=== PATIENT | female | born 1960 | race Caucasian/White ===

== ENCOUNTER 2017-12-11 04:10 | Observation (INO) | payer OTHER ==
[2017-12-11] MEDS ORDERED: NS 0.9% 1000 ML* 1,000 ML IV ONE (04:25)
[2017-12-11] MEDS ORDERED: Morphine INJ* 4 MG/ML 1 ML CARPUJECT IV ONE (04:26)
[2017-12-11] MEDS ORDERED: Ondansetron INJ* 2 MG/ML VIAL IV ONE (04:27)
[2017-12-11] MEDS ORDERED: LORazepam INJ* 2 MG/ML 1 ML VIAL IV PUSH ONE (04:27)
[2017-12-11 04:37] LABS: ABS Basophils 0 10^3/ul (0-0.2); ABS Eosinophils 0.1 10^3/ul (0-0.6); ABS Lymphocytes 1.9 10^3/ul (1.0-4.8); ABS Monocytes 0.6 10^3/ul (0-0.8); ABS Nucleated RBC 0 10^3/ul; Eosinophil % 0.7 % (0-6); Hematocrit 38 % (35-47); Hemoglobin 13.1 g/dl (12.0-16.0); Lymphocyte % 15.1 % (25-47); Mean Corpuscular HGB Conc 35 g/dl (31-36); Mean Corpuscular Hemoglobin 32 pg (27-31); Mean Corpuscular Volume 92 fL (80-97); Mean Platelet Volume 8 um3 (7.4-10.4); Nucleated Red Blood Cells % 0.1; Platelet Count 290 10^3/ul (150-450); Red Blood Count 4.14 10^6/ul (4.0-5.4); Red Cell Distribution Width 14 % (10.5-15); White Blood Count 12.7 10^3/ul (3.5-10.8)
[2017-12-11] MEDS ORDERED: Morphine INJ* 4 MG/ML 1 ML SYRINGE (NEW SYRINGE VERSION) ONE (04:39)
[2017-12-11 04:48] LABS: EGFR Non-African American 75.6 (>60)
[2017-12-11] MEDS ORDERED: HYDROmorphone INJ* 2 MG/ML CARPUJECT SYRINGE IV SLOW PU ONE ×3 (05:23→09:35)
[2017-12-11] MEDS ORDERED: Diazepam SYRINGE* 5 MG/ML 2 ML SYRINGE (10 MG total) IV ONE (05:48)
[2017-12-11] MEDS ORDERED: Diazepam INJ (NF) 5 MG/ML 10 ML VIAL (50 MG TOTAL) IV ONE (06:00)
[2017-12-11] MEDS ORDERED: Iohexol 300* (CONTRAST) 10 ML SDV IV ONE (06:46)
--- NOTE | 2017-12-11 06:53 | ED ---
Erik Cerrato Tecjoon, [email or web address] for Micah Gomez MD on 12/11/17 at 0427 . Abdominal Pain/Female - HPI Summary HPI Summary: This patient is a 57 year old female BIBA to [facility] accompanied by with a chief complaint of abd pain since approx. 0100. Patient states the pain was very sudden onset. The pain is rated 10/10 in severity. Symptoms aggravated by nothing. Symptoms alleviated by nothing. Patient additionally reports nausea, vomiting. Patient denies diarrhea - History of Current Complaint Stated Complaint: ABD PAIN Time Seen by Provider: 12/11/17 04:15 Hx Obtained From: Patient Onset/Duration: Sudden Onset, Lasting Hours, Still Present Timing: Constant Severity Currently: Severe Location: Diffuse Aggravating Factor(s): Nothing Alleviating Factor(s): Nothing Associated Signs and Symptoms: Positive: Nausea, Vomiting. Negative: Diarrhea Allergies/Adverse Reactions: Allergies Allergy/AdvReac Type Severity Reaction Status Date / Time Penicillins Allergy See Comment Verified 12/11/17 04:35 PMH/Surg Hx/FS Hx/Imm Hx Previously Healthy: No GI History: Reports: Hx Irritable Bowel Musculoskeletal History: Denies: Hx Rheumatoid Arthritis, Hx Osteoporosis Opthamlomology History: Denies: Hx Legally Blind EENT History: Denies: Hx Deafness Infectious Disease History: Denies: Traveled Outside the [place] in Last 30 Days - Family History Known Family History: Positive: Hypertension - Social History Lives: With Family Alcohol Use: None Hx Substance Use: No Substance Use Type: Reports: None Hx Tobacco Use: No Smoking Status (MU): Never Smoked Tobacco Review of Systems Negative: Fever Positive: Abdominal Pain, Vomiting, Nausea. Negative: Diarrhea All Other Systems Reviewed And Are Negative: Yes Physical Exam - Summary Physical Exam Summary: VITAL SIGNS: Reviewed. GENERAL: Patient is a well-developed and nourished female who is lying comfortable in the stretcher. Patient is not in any acute respiratory distress. HEAD AND FACE: No signs of trauma. No ecchymosis, hematomas or skull depressions. No sinus tenderness. EYES: PERRLA, EOMI x 2, No injected conjunctiva, no nystagmus. EARS: Hearing grossly intact. Ear canals and tympanic membranes are within normal limits. MOUTH: Oropharynx within normal limits. NECK: Supple, trachea is midline, no adenopathy, no JVD, no carotid bruit, no c- spine tenderness, neck with full ROM. CHEST: Symmetric, no tenderness at palpation LUNGS: Clear to auscultation bilaterally. No wheezing or crackles. CVS: Regular rate and rhythm, S1 and S2 present, no murmurs or gallops appreciated. ABDOMEN: Diffuse abd tenderness, more so on LLQ. Hypoactive bowel sounds. EXTREMITIES: FROM in all major joints, no edema, no cyanosis or clubbing. NEURO: Alert and oriented x 3. No acute neurological deficits. Speech is normal and follows commands. SKIN: Dry and warm Triage Information Reviewed: Yes Vital Signs Reviewed: Yes Diagnostics - Laboratory Result Diagrams: 12/11/17 04:16 12/11/17 04:16 Lab Statement: Any lab studies that have been ordered have been reviewed, and results considered in the medical decision making process. Abdominal Pain Fem Course/Dx - Course Course Of Treatment: This patient is a 57 year old female BIBA to [facility] accompanied by with a chief complaint of abd pain since approx. 0100. Patient states the pain was very sudden onset. Bloodwork Obtained. Urinalysis Obtained. In the ED course the patient was given Valium, Hydromorphone, Ativan, Morphine, Zofran. The patient will be signed out to Dr. Calabrese at end of shift , awaiting CT Abd/Pel. - Diagnoses Provider Diagnoses: Abdominal pain Discharge - Discharge Plan Condition: Stable Disposition: OTHER Discharge Disposition Comment: Patient will be signed out to Dr. Calabrese at end of shift. Referrals: Joana Vanegas MD [Primary Care Provider] - The documentation as recorded by the Erik coyle Tecjoon accurately reflects the service I personally performed and the decisions made by , Micah Gomez MD.
[2017-12-11 07:41] LABS: Urine Appearance Cloudy; Urine Blood 2+ (Negative); Urine Color Amber; Urine Ketones Negative (Negative); Urine Protein 1+(30 mg/dL) (Negative); Urine Specific Gravity 1.014 (1.010-1.030); Urine Urobilinogen Negative (Negative)
--- NOTE | 2017-12-11 07:44 | RAD ---
CLINICAL HISTORY: Abdominal pain COMPARISON: August 02, 2009 TECHNIQUE: Multiple contiguous axial CT scans were obtained of the abdomen and pelvis after the administration of intravenous contrast. Coronal and sagittal multiplanar reformations are submitted for review. Oral contrast was administered. Delayed images were obtained through the abdomen and pelvis. FINDINGS: LUNG BASES: The lung bases are clear. LIVER: The right lobe of liver is enlarged and is stable from the previous examination most consistent with a Aguila's lobe. There are no focal hepatic parenchymal masses. BILE DUCTS: There is no intrahepatic or extrahepatic biliary dilatation. GALLBLADDER: The gallbladder is normal, without pericholecystic inflammatory change. PANCREAS: The pancreas is normal, without mass or ductal dilatation. SPLEEN: Normal in size and appearance. UPPER GI TRACT: Evaluation of the gastrointestinal tract is limited by incomplete gastric distention. There is a moderate sliding hiatal hernia. SMALL BOWEL AND MESENTERY: The small bowel is normal in contour, course, and caliber. There is no obstruction or dilatation. COLON: The colon is normal in contour, course, caliber. There is no pericolonic inflammatory change. ADRENALS: Normal bilaterally. KIDNEYS: There is edema of the left kidney with perinephric stranding. There is delayed excretion on the delayed images. There is pelvocaliectasis with a 0.8 cm calculus of the left UPJ. BLADDER: The bladder is incompletely distended but is grossly normal. PELVIC ORGANS: The uterus and adnexa are grossly normal for technique. AORTA: There is calcific atherosclerotic disease of the abdominal aorta and its branches, without aneurysmal dilatation IVC: Unremarkable LYMPH NODES: There is no lymphadenopathy by size criteria. ABDOMINAL WALL: There is no evidence for abdominal wall hernia. BONES AND SOFT TISSUES: There are mild diffuse degenerative changes. OTHER: None IMPRESSION: 1. LEFT-SIDED HYDRONEPHROSIS WITH A 0.8 CM LEFT UVJ CALCULUS. THERE IS EDEMA AND DELAYED EXCRETION OF THE LEFT KIDNEY WITH PERINEPHRIC STRANDING CONSISTENT WITH FORNICEAL RUPTURE. 2. ATHEROSCLEROSIS. 3. HIATAL HERNIA.
[2017-12-11] MEDS ORDERED: Ciprofloxacin 400MG IVPREMIX(* 400 MG/200 ML BAG IVPB ONE ×2 (08:09→09:00)
[2017-12-11] MEDS ORDERED: Gentamicin ADULT (*) 160 MG in NS 0.9% 100 ML* 100 ML IVPB ONE (08:26)
[2017-12-11] MEDS ORDERED: Famotidine IV* 10 MG/ML 2 ML (20 mg) IV ONE (09:22)
[2017-12-11] MEDS ORDERED: HYDROmorphone INJ* 2 MG/ML CARPUJECT SYRINGE ONE (09:35)
[2017-12-11] MEDS ORDERED: Famotidine IV* 10 MG/ML 2 ML (20 mg) ONE (09:35)
[2017-12-11] MEDS ORDERED: Ondansetron INJ* 2 MG/ML VIAL IV PRN (09:37)
[2017-12-11] MEDS ORDERED: PROCHLORPERAZINE INJ 5 MG/ML 2 ML VIAL IV PRN ×2 (09:42→11:31)
[2017-12-11] MEDS ORDERED: PROCHLORPERAZINE INJ 5 MG/ML 2 ML VIAL ONE (09:43)
[2017-12-11] MEDS ORDERED: NS 0.9% 1000 ML* 1,000 ML IV SCH (09:45)
[2017-12-11] MEDS ORDERED: Zolpidem TAB* 10 MG PO PRN (09:53)
[2017-12-11] MEDS ORDERED: Iohexol 180 (CONTRAST) 10 ML SDV IV ONE (10:11)
[2017-12-11] MEDS ORDERED: Midazolam* 1 MG/ML 10 ML VIAL (10 MG) ONE (10:45)
[2017-12-11] MEDS ORDERED: KETAMINE HCL* 50 MG/ML 10 ML VIAL ONE (10:45)
[2017-12-11] MEDS ORDERED: fentaNYL* 50 MCG/ML 2 ML VIAL (100 MCG VIAL) ONE (10:45)
[2017-12-11] MEDS ORDERED: Phenylephrine INJ* 10 MG/ML 1 ML VIAL (10 MG) ONE (11:16)
[2017-12-11] MEDS ORDERED: Ondansetron INJ* 2 MG/ML VIAL ONE (11:16)
[2017-12-11] MEDS ORDERED: Lidocaine 2% PF * 5 ML VIAL ONE (11:16)
[2017-12-11] MEDS ORDERED: Propofol* 10 MG/ML 20 ML BTL IV PUSH ONE (11:16)
[2017-12-11] MEDS ORDERED: Dexamethasone IV* 4 MG/ML 1 ML (4 MG) ONE (11:16)
[2017-12-11] MEDS ORDERED: EPHEDrine (Pressors)* 50 MG/ML VIAL ONE (11:17)
[2017-12-11] MEDS ORDERED: HYDROmorphone INJ* 1 MG/ML CARPUJECT SYRINGE IV PRN (11:31)
[2017-12-11] MEDS ORDERED: Naloxone* 0.4 MG/ML 1 ML VIAL IV PRN (11:31)
[2017-12-11] MEDS ORDERED: DiMENhydriNATE IV* 50 MG/ML VIAL IV PUSH PRN (11:31)
[2017-12-11] MEDS ORDERED: fentaNYL* 50 MCG/ML 2 ML VIAL (100 MCG VIAL) IV PRN (11:31)
--- NOTE | 2017-12-11 12:04 | RAD ---
INDICATION: Left stent insertion COMPARISONS: CT dated December 11, 2017 TECHNIQUE: Fluoroscopy was provided for a retrograde pyelogram and stent placement. Total fluoroscopy time is: 7 seconds FINDINGS: Spot images demonstrate contrast within the renal collecting system which is mildly dilated. A ureteral stent is noted. IMPRESSION: FLUOROSCOPY WAS PROVIDED FOR A RETROGRADE PYELOGRAM AND STENT PLACEMENT CPT II Codes: 6045F
[2017-12-11] MEDS ORDERED: Benzocaine/Menthol LOZ* 1 LOZENGE PO PRN (13:39)
[2017-12-11] MEDS ORDERED: Mouth Piece, Nicotine* 1 EACH CARTRIDGE INH PRN (17:05)
[2017-12-11] MEDS ORDERED: Nicotine Inhaler* 10 MG AMP INH PRN (17:05)
[2017-12-11] MEDS: HYDROmorphone INJ* 2 MG/ML CARPUJECT SYRINGE IV SLOW PU PRN ×2 (19:50→23:56)
--- NOTE | 2017-12-11 20:23 | HP ---
CC: Dr. Joana Vanegas * HISTORY AND PHYSICAL: DATE OF ADMISSION: 12/11/17 PRIMARY CARE PROVIDER: Dr. Joana Vanegas. CHIEF COMPLAINT: Left flank pain. HISTORY OF PRESENT ILLNESS: Ms. Andrew is a 57-year-old female, who states that she has had a very busy month of procedures. She around the beginning of the month underwent colonoscopy and EGD. She felt that she was dehydrated following the prep for these procedures. She then around 12/03/17 underwent a molar extraction and was prepared to have an implant placed. She was then started on Keflex 4 times daily. She continued this through yesterday. Additionally, the patient was taking Vicodin 4 to 6 times per day. The patient states that she is also on a highly restricted diet at baseline to help with her IBS-D. The patient, last evening, began to have left flank pain. By approximately 1 a.m., the pain was very severe. She ultimately contacted 911 and was brought to the emergency room. The patient underwent CT scan of the abdomen and pelvis, which revealed left-sided hydronephrosis with a 0.8-cm left UPJ calculus. There was edema and delayed excretion of the left kidney with perinephric stranding consistent with forniceal rupture. The hospitalist services have been contacted to admit the patient with plans for the patient to go urgently to the OR for stent placement. PAST MEDICAL HISTORY: 1. IBS-D. 2. Allergic rhinitis. PAST SURGICAL HISTORY: Left hand abscess drainage. MEDICATIONS: 1. Amitriptyline nightly. 2. Clonazepam 1 mg p.o. t.i.d. p.r.n. anxiety/insomnia. 3. Hyoscyamine 0.125 mg p.o. 4 times daily p.r.n. abdominal spasms. 4. Loperamide 2 mg p.o. p.r.n. diarrhea. 5. Tramadol 100 mg p.o. 4 times daily p.r.n. pain. 6. Ambien 12.5 mg p.o. q.h.s. p.r.n. insomnia. 7. Ranitidine 150 mg p.o. daily. ALLERGIES: No known drug allergies. FAMILY HISTORY: Mom at the age of 90. She had adenocarcinoma of the colon. Dad in his 70s. He had myelodysplastic syndrome. SOCIAL HISTORY: The patient smokes 3 quarters a pack of cigarettes per day. She drinks alcohol rarely. 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 She is . She has 1 grown child. She indicates that her would be her surrogate decision maker. REVIEW OF SYSTEMS: Complete 11-system review of systems is obtained. Pertinent positives and negatives are as per HPI and in addition, the patient does admit to significant nausea and vomiting last evening. She states she vomited 4 to 5 times last night and she also notes significant anxiety regarding this event. PHYSICAL EXAMINATION GENERAL: The patient is a well-developed, middle-aged female sitting on the stretcher, tearful at times, but in no acute distress. VITAL SIGNS: Blood pressure 133/64, pulse 80, respirations 16, temp 99.5, O2 sat 95% on room air. HEENT: Pupils are equal and round. Extraocular muscles are intact. Oropharynx is clear. Oral mucosa is moist. There is no submandibular, cervical , or supraclavicular adenopathy. Thyroid is not enlarged. No thyroid nodules are noted. PULMONARY: Lungs are clear to auscultation anteriorly. CARDIAC: Normal S1, S2. Regular rate and rhythm. I do not appreciate any murmurs. ABDOMEN: Bowel sounds present. Abdomen is soft. She is diffusely tender, but worse in the left lower quadrant. MUSCULOSKELETAL: There is no cyanosis or clubbing of the digits. There is full active range of motion of all 4 extremities. NEURO: Cranial nerves II through XII appeared to be grossly intact. Sensation is intact to light touch. Strength appears to be normal in all 4 extremities. PSYCH: The patient is alert, she is oriented x3. She is tearful. She is frustrated. SKIN: Warm and dry. Visible areas of skin did not reveal any rash. DIAGNOSTIC STUDIES/LAB DATA: WBC 12.7, hemoglobin 13.1, hematocrit 38, platelets 290. Sodium 137, potassium 3.7, chloride 102, CO2 26, BUN 13, creatinine 0.78, glucose 116, calcium 9.5. Bilirubin 0.8, AST 33, ALT 34, alk phos 63. CRP 1.04. Albumin 4.3, amylase 67, lipase 20. Urinalysis reveals a specific gravity of 1.014, 1+ protein, 2+ blood, 3+ leukocyte esterase, absent bacteria. CT abdomen and pelvis reveals left-sided hydronephrosis with a 0.8-cm left UPJ calculus. There is edema and delayed excretion of the left kidney with perinephric stranding consistent with forniceal rupture. Additionally, atherosclerosis and hiatal hernia was noted. ASSESSMENT AND PLAN: 1. Ms. Andrew is a 57-year-old female with a history of irritable bowel syndrome-D who presents to the emergency room with complaints of severe left flank pain and was found to have a left ureteropelvic junction calculus with associated hydronephrosis and likely urinary tract infection. The patient had been on Keflex . Therefore, the decision was made to change the antibiotic coverage to ciprofloxacin and a one-time dose of gentamicin. Dr. Nayak has seen the patient in consultation and is planning on taking her to the operating room within an hour. The patient will need a stent placement. She will ultimately need definitive stone therapy. However, this will be determined down the road. The patient will have Dilaudid for pain control as well as Zofran and Compazine for nausea. 2. Irritable bowel syndrome-D. We will continue amitriptyline and clonazepam. The patient states overall her symptoms have been under very good control recently. She has not needed any of her p.r.n. medications. 3. DVT prophylaxis. According to the Adult Thrombosis Prophylaxis Risk Factor Assessment Guide, the patient has a total risk factor score of 1 making her low risk. Ambulation will be utilized for DVT prophylaxis. 4. Code status is full. TIME SPENT: Sixty-five minutes was spent admitting the patient. [id number]/[facility] #: [id number] [facility]
[2017-12-11] MEDS ORDERED: Amitriptyline TAB* 10 MG PO SCH (21:00)
[2017-12-11] MEDS: Ciprofloxacin 400MG IVPREMIX(* 400 MG/200 ML BAG IVPB SCH (21:09)
[2017-12-11] MEDS: clonazePAM TAB(*) 1 MG PO PRN (23:56)
--- NOTE | 2017-12-12 06:09 | OP ---
CC: Joana Vanegas MD OPERATIVE REPORT: DATE OF OPERATION: 12/11/17. DATE OF : 56 SURGEON: Richard Nayak MD. ANESTHESIOLOGIST: Dr. Kashmir Vernon. ANESTHESIA: General. PRE-OP DIAGNOSES: 1. Left Renal Calculus (UPJ level, 1 cm). 2. Urinary tract infection. POST-OP DIAGNOSES: 1. Left Renal Calculus (UPJ level, 1 cm). 2. Urinary tract infection. OPERATIVE PROCEDURE: 1. Cystoscopy. 2. Placement of left ureteral stent (6-Botswanan). 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 She was not febrile. Urinalysis was positive for infection. Blood count was elevated at 17,000. CT of the abdomen and pelvis with IV contrast showed left hydronephrosis with stranding around the left kidney consistent with urinary extravasation from a ruptured papilla, and an obstructing 1 cm calculus at the left ureteropelvic junction. No other renal abnormalities were noted. The patient was started on IV antibiotics. She is taken to the operating room on an urgent basis for placement of left ureteral stent in preparation for definitive treatment of the stone. PATHOLOGY: AT CYSTOSCOPY there was slight stenosis of the urethra. Examination of the bladder showed normal mucosa. There were no changes of cystitis. No suspicious bladder lesions were seen. There was a single orifice on each side. At fluoroscopy, there was residual contrast in the left kidney and in the renal pelvis from her recent imaging study. Because of the contrast, the calculus could not be visualized. There was hydronephrotic drip from the kidney, it looked concentrated, consistent with high grade obstruction, but it was not purulent or cloudy. DESCRIPTION OF PROCEDURE: After successful general anesthesia, the patient was placed in the lithotomy position and was prepped and draped for cystoscopy. A 20- B[place]wanan cystoscope was introduced inside the bladder. The bladder was inspected and above findings were noted. A hybrid flexible-tipped guidewire was then introduced into the left orifice and successfully positioned in the renal pelvis. An open-ended catheter was fed on top of the guidewire and introduced into the renal pelvis. Urine was obtained from the left kidney and sent for culture and sensitivity. After the hydronephrotic drip slowed down, the guidewire was repositioned in the left kidney. A size 6-B[place]wanan stent was then placed with the proximal end coiling in the renal pelvis and distal end coiling inside the bladder. There was good drainage of contrast from the kidney and no extravasation. The patient tolerated the procedure well and left the operating room in good condition. The plan is to keep the patient overnight for IV antibiotics and for observation for possible sepsis. A KUB will be obtained in the morning to assess the position of the stone. The patient will need definitive treatment of the stone at the later date. [id number]/[facility] #: [id number] [facility]
[2017-12-12 06:18] LABS: ABS Basophils 0 10^3/ul (0-0.2); ABS Eosinophils 0 10^3/ul (0-0.6); ABS Lymphocytes 3.5 10^3/ul (1.0-4.8); ABS Monocytes 1.1 10^3/ul (0-0.8); ABS Neutrophils 6.6 10^3/ul (1.5-7.7); ABS Nucleated RBC 0 10^3/ul; Eosinophil % 0.4 % (0-6); Hematocrit 31 % (35-47); Hemoglobin 10.7 g/dl (12.0-16.0); Lymphocyte % 31.4 % (25-47); Mean Corpuscular HGB Conc 34 g/dl (31-36); Mean Corpuscular Hemoglobin 32 pg (27-31); Mean Corpuscular Volume 92 fL (80-97); Mean Platelet Volume 8 um3 (7.4-10.4); Nucleated Red Blood Cells % 0.1; Platelet Count 216 10^3/ul (150-450); Red Blood Count 3.39 10^6/ul (4.0-5.4); Red Cell Distribution Width 14 % (10.5-15); White Blood Count 11.2 10^3/ul (3.5-10.8)
[2017-12-12 06:33] LABS: EGFR Non-African American 81.6 (>60)
[2017-12-12] MEDS ORDERED: Phenazopyridine TAB* 100 MG PO ONE (08:16)
[2017-12-12] MEDS: Ciprofloxacin 400MG IVPREMIX(* 400 MG/200 ML BAG IVPB SCH (08:55)
[2017-12-12] MEDS ORDERED: Famotidine TAB* 20 MG PO SCH (09:00)
--- NOTE | 2017-12-12 09:04 | RAD ---
INDICATION: Left ureteral stent placement. COMPARISON: Comparison is made with a prior CT of the abdomen and pelvis from one day earlier. TECHNIQUE: Frontal supine films of the abdomen were obtained. FINDINGS: The small bowel and colon appear nondistended. Contrast is seen within the colon from the prior CT study. There is a double-J stent ureteral catheter present on the right side. There appears to be a small 5 mm calcific density which projects adjacent to the proximal portion of the catheter. IMPRESSION: STATUS POST LEFT URETERAL STENT PLACEMENT PROBABLE CALCULUS ADJACENT TO THE PROXIMAL CATHETER.
[2017-12-12] MEDS: clonazePAM TAB(*) 1 MG PO PRN (10:14)
--- NOTE | 2017-12-12 10:46 | PN ---
Subjective - Subjective Reason for Note: Discharge Note History: OBV discharge summary: I reviewed Agustina Alvarado's presentation and interventions with the patient, Dr. Daniella Yanez's and Dr. Richard Nayak's reports. She developed left sided hydronephrosis from a ureteric stone. She had a stent placed yesterday and she continues to have the stone adjacent to the stent on the KUB x-ray this morning. She has had frequent urination overnight with dysuria, blood and clots. She has discomfort from the stent, but the acute pain of the renal colic has gone. She is distressed at not sleeping 2 nights and by her poor pain control. She has had no fevers, rigors or sweats. She wants to go home. Active Problems: Active Problems Anxiety (Acute) F41.9 History of ureter stent (Acute) Z96.0 Hydronephrosis, left (Acute) N13.30 Left ureteral calculus (Acute) N20.1 IBS (irritable bowel syndrome) (Chronic) Current Medications: Current Medications Amitriptyline HCl (Elavil Tab*) 10 mg PO BEDTIME [facility] Last Admin: 12/11/17 21:09 Dose: 10 mg Clonazepam (Klonopin Tab(*)) 1 mg PO TID PRN PRN Reason: ANXIETY/INSOMNIA Last Admin: 12/12/17 10:14 Dose: 1 mg Device (Nicotine Mouth Piece*) 1 each INH .USE WITH NICOTROL PRN PRN Reason: CRAVING Last Admin: 12/11/17 17:21 Dose: 1 each Famotidine (Pepcid Tab*) 20 mg PO DAILY [facility] PRN Reason: Protocol Last Admin: 12/12/17 08:33 Dose: 20 mg Hydromorphone HCl (Dilaudid Inj*) 1 mg IV SLOW PU Q4H PRN PRN Reason: PAIN Last Admin: 12/11/17 23:56 Dose: 1 mg Ciprofloxacin/Dextrose (Cipro 400 Mg Ivpremix(*)) 400 mg in 200 mls @ 200 mls/ hr IVPB Q12H [facility] Last Admin: 12/12/17 08:55 Dose: 200 mls/hr Lactated Ringer's (Lactated Ringers 1000 Ml Bag*) 1,000 mls @ 150 mls/hr IV .PER RATE [facility] Last Admin: 12/12/17 03:26 Dose: 150 mls/hr Naloxone HCl (Narcan*) 0.08 mg IV Q2M PRN PRN Reason: severe induced resp depression Stop: 12/12/17 11:30 Nicotine (Nicotine Inhaler*) 10 mg INH Q2H PRN PRN Reason: CRAVING Last Admin: 12/11/17 17:21 Dose: 10 mg Ondansetron HCl (Zofran Inj*) 4 mg IV Q6H PRN PRN Reason: NAUSEA Prochlorperazine Edisylate (Compazine Inj*) 10 mg IV Q6H PRN PRN Reason: NAUSEA/VOMITING Last Admin: 12/11/17 09:45 Dose: 10 mg Throat Lozenges (Chloraseptic Hayley*) 1 hayley PO Q6H PRN PRN Reason: SORE THROAT Zolpidem Tartrate (Ambien Tab*) 10 mg PO BEDTIME PRN; Protocol PRN Reason: INSOMNIA Home Medications: Home Medications Medication Instructions Recorded Confirmed Type Amitriptyline TAB* [Elavil TAB*] 10 mg PO BEDTIME 12/11/17 12/11/17 History Hyoscyamine TAB* [Anaspaz 0.125 MG 0.125 mg PO Q6H PRN 12/11/17 12/11/17 History TAB*] Loperamide CAP* [Imodium CAP*] 2 mg PO Q4H PRN 12/11/17 12/11/17 History Ranitidine TAB (NF) [Zantac TAB 150 mg PO DAILY 12/11/17 12/11/17 History (NF)] Zolpidem CR (NF) [Ambien CR (NF)] 12.5 mg PO BEDTIME PRN 12/11/17 12/11/17 History clonazePAM TAB(*) [Klonopin TAB(*)] 1 mg PO TID PRN 12/11/17 12/11/17 History traMADol TAB* [Ultram*] 100 mg PO Q4HR PRN 12/11/17 12/11/17 History Allergies: Allergies Allergy/AdvReac Type Severity Reaction Status Date / Time Penicillins Allergy See Comment Verified 12/11/17 04:35 Objective - Vital Signs Vital Signs: Vital Signs 12/11/17 12/11/17 12/11/17 11:30 11:35 11:40 Temperature 97.9 F Pulse Rate 104 93 100 Respiratory 16 16 16 Rate Blood Pressure 127/80 143/78 143/75 (mmHg) O2 Sat by Pulse 100 100 100 Oximetry 12/11/17 12/11/17 12/11/17 11:45 12:00 12:30 Temperature Pulse Rate 110 104 79 Respiratory 16 14 14 Rate Blood Pressure 141/82 141/75 132/74 (mmHg) O2 Sat by Pulse 96 95 94 Oximetry 12/11/17 12/11/17 12/11/17 12:45 13:16 13:25 Temperature 97.7 F 97.7 F Pulse Rate 82 88 88 Respiratory 14 18 18 Rate Blood Pressure 129/88 156/76 156/76 (mmHg) O2 Sat by Pulse 94 93 93 Oximetry 12/11/17 12/11/17 12/11/17 13:48 14:16 15:25 Temperature 99.1 F 98.9 F Pulse Rate 93 86 Respiratory 18 16 16 Rate Blood Pressure 130/84 128/64 (mmHg) O2 Sat by Pulse 94 92 Oximetry 12/11/17 12/11/17 12/11/17 17:20 19:15 19:18 Temperature 98.7 F 98.9 F Pulse Rate 93 91 Respiratory 16 16 16 Rate Blood Pressure 114/72 120/56 (mmHg) O2 Sat by Pulse 95 95 Oximetry 12/11/17 12/11/17 12/11/17 19:23 19:50 21:11 Temperature 98.7 F Pulse Rate 89 Respiratory 16 16 16 Rate Blood Pressure (mmHg) O2 Sat by Pulse 95 Oximetry 12/11/17 12/11/17 12/12/17 23:47 23:56 01:06 Temperature 98.7 F Pulse Rate 91 Respiratory 16 16 16 Rate Blood Pressure 111/75 (mmHg) O2 Sat by Pulse 94 Oximetry 12/12/17 12/12/17 12/12/17 02:05 03:28 07:27 Temperature 99.1 F 98.7 F Pulse Rate 83 70 Respiratory 16 16 14 Rate Blood Pressure 109/56 128/61 (mmHg) O2 Sat by Pulse 93 95 Oximetry 12/12/17 12/12/17 08:00 10:14 Temperature Pulse Rate Respiratory 18 20 Rate Blood Pressure (mmHg) O2 Sat by Pulse Oximetry - Intake and Output Intake and Output: Intake & Output 02/12/10/17 12/11/17 12/12/17 11:59 11:59 11:59 11:59 Intake Total 800 3602 Output Total 0 3500 Balance 800 102 Weight 120 lb Intake: IV Fluids 800 2127 ABX - CIPROFLOXACIN 192 LR 800 1935 Oral 1475 Output: Urine 0 3500 ADLs: Meal Record Start: 12/11/17 13: 26 Freq: Status: Active Protocol: Created 12/11/17 13:26 [id number] (Rec: 12/11/17 13:26 [id number] SSU-C19) Document 12/11/17 17:53 [id number] (Rec: 12/11/17 17:54 [id number] SSU-C12) Document 12/12/17 08:59 [id number] (Rec: 12/12/17 08:59 [id number] SSU-M13) Intake and Output Start: 12/11/17 13: 26 Freq: DAILY@0600,1400,2200 Status: Active Protocol: Created 12/11/17 13:26 [id number] (Rec: 12/11/17 13:26 [id number] SSU-C19) Document 12/11/17 13:55 [id number] (Rec: 12/11/17 13:55 [id number] SSU-C19) Document 12/11/17 14:38 [id number] (Rec: 12/11/17 14:38 [id number] SSU-C19) Document 12/11/17 19:31 [id number] (Rec: 12/11/17 19:31 [id number] SSU-M14) Document 12/11/17 21:18 [id number] (Rec: 12/11/17 21:18 [id number] SSU-M14) Document 12/11/17 22:37 [id number] (Rec: 12/11/17 22:37 [id number] SSU-C12) Document 12/12/17 02:37 [id number] (Rec: 12/12/17 02:37 [id number] SSU-C07) Document 12/12/17 06:11 [id number] (Rec: 12/12/17 06:11 [id number] SSU-C12) Document 12/12/17 07:10 [id number] (Rec: 12/12/17 07:10 [id number] SSU-C12) Document 12/12/17 10:18 (Rec: 12/12/17 10:18 [id number]) - Physical Exam General Physical Exam Comment: Anxious, tearful and angry General: No Cyanosis, No Anemia, No Jaundice, No Lymphadenopathy, No Clubbing Skin: Normal: Rash Lungs and Chest: Yes: Chest Expansion Full, Chest Expansion Symetrica, Percussion Note Resonant, Vessicular Breath Sounds. No: Crackles, Wheezes Heart Rate and Rhythm: Regular JVP: Not Elevated Additional Cardiovascular: Yes: Normal Heart Sounds. No: Heart Murmur, Pedal Edema Abdominal Exam: Yes: Soft, Abdominal Tenderness - suprapubic, Bowel Sounds Present. No: Distention, Rigidity, Abdominal Mass, Hepatomegaly, Guarding, Rebound Tenderness, Kidneys Palpable - Neuro Orientation: A/O x3 Psychiatric: Anxious Speech: Normal Results - Results Lab Results: Laboratory Results - last 24 hr 12/12/17 12/12/17 06:02 06:02 WBC 11.2 H RBC 3.39 L Hgb 10.7 L Hct 31 L MCV 92 MCH 32 H MCHC 34 RDW 14 Plt Count 216 MPV 8 Neut % (Auto) 58.5 Lymph % (Auto) 31.4 [place] % (Auto) 9.4 H Eos % (Auto) 0.4 Baso % (Auto) 0.3 Absolute Neuts (auto) 6.6 Absolute Lymphs (auto) 3.5 Absolute Monos (auto) 1.1 H Absolute Eos (auto) 0 Absolute Basos (auto) 0 Absolute Nucleated RBC 0 Nucleated RBC % 0.1 Sodium 140 Potassium 3.7 Chloride 105 Carbon Dioxide 29 Anion Gap 6 BUN 9 Creatinine 0.73 Est GFR ( Amer) 104.9 Est GFR (Non-Af Amer) 81.6 BUN/Creatinine Ratio 12.3 Glucose 102 H Calcium 8.7 Radiology Results: Patient Name: AGUSTINA ALVARADO Medical Record#: [id number] Ordering Physician: Richard Nayak MD Acct.#: [id number] : 1960 Age: 57 Sex: F Location: SURGICAL STAY UNIT Exam Date: 12/12/17 0700 ADM Status: ADM Jayshree Order Information: ABDOMEN/KUB 1 VW Accession Number: [id number] CPT: 75764 INDICATION: Left ureteral stent placement. COMPARISON: Comparison is made with a prior CT of the abdomen and pelvis from one day earlier. TECHNIQUE: Frontal supine films of the abdomen were obtained. FINDINGS: The small bowel and colon appear nondistended. Contrast is seen within the colon from the prior CT study. There is a double-J stent ureteral catheter present on the right side. There appears to be a small 5 mm calcific density which projects adjacent to the proximal portion of the catheter. IMPRESSION: STATUS POST LEFT URETERAL STENT PLACEMENT PROBABLE CALCULUS ADJACENT TO THE PROXIMAL CATHETER. <Electronically signed by Giovanni Orellana MD in [place]> 12/12/17 0900 Dictated By: Giovanni Orellana MD Dictated Date/Time: 12/12/17 09 Transcribed Date/Time: 12/12/17 0858 Copy to: CC:Joana Vanegas MD; Jacki Yanez DO; Praveena Gibbs CONSOLE OPERATOR; Richard Nayak MD Imaging - [facility] - [place] [facility] [address] [place] [address] ph [phone]) ph ([phone]) ph ([phone]) 1 of 1 Assessment - Problem List Assessment: Patient Problems Anxiety (Acute) History of ureter stent (Acute) Hydronephrosis, left (Acute) Left ureteral calculus (Acute) IBS (irritable bowel syndrome) (Chronic) Plan: History of ureter stent (Acute)Hydronephrosis, left (Acute)Left ureteral calculus (Acute) She has a successful stent placement - I reviewed this morning 's AXR. The proximal end is in the renal pelvis. She has no signs of infection. I think she is ready for discharge. She will follow up with Dr. Nayak for planned lithotripsy. I discussed pain control. She is a smoker, but has no other history of drug dependence. I explained to her the importance of minimizing opioid usage. She had hydromorphone IV - this made her whoozy, but its effect was short lived. Dr. Nayak is due to see her shortly and will prescribe an antispasmodic and analgesic for outpatient use. IBS (irritable bowel syndrome) (Chronic) She has not had a BM during her hospitization Anxiety (Acute) She is very anxious and hasn't slept for 2 nights. She is likely to do better at home. She has clonazepam to help at home. I discussed the above with the patient and her at length. She is ready for discharge contingent on Dr. Nayak's agreement.
[2017-12-12 11:43] VITALS: BP 142/95
--- NOTE | 2017-12-12 19:57 | ED ---
Eric Cerrato Natalie, scribed for Evangelina Honeycutt MD on 12/11/17 at 0820 . Progress - Progress Note Progress Note: This patient was a sign-out from Dr. Gomez. At shift change, I spoke with the patient concerning the status of her diagnosis. The CT Abd/Pel report shows hydropnephrosis and forniceal rupture. She was prescribed Cephalexin 500 mg 4x daily from 12/03/17 to 12/10/17 s/p extraction of upper left molar by Dr. Espinoza from [facility]. She also had a colonoscopy on 11/25/17. She states she has not had a hx of kidney stones, and she has never seen a urologist. The patient has hx of IBS with negative biopsies. She is allergic to penicillins. The patient will be taken under the care of Dr. Nayak and OR team for surgery. - Results/Orders Results/Orders: CT Abdomen/Pelvis: 1. Left-sided hydronephrosis with a 0.8 cm left UPJ calculus. There is edema and delayed excretion of the left kidney with perinephric stranding consistent with forniceal rupture. 2. Atherosclerosis. 3. Hiatal hernia. ED physician has reviewed this report. . Ed physician has reviewed this report. - Consult/PCP Time Called: 08:03 - I called [facility] regarding patient's status. - Additional EKG/XRAY/Consults Time Called: 08:12 - I spoke with Dr. Nayak who said he would take care of the patient. He is going to contact the OR team, and he will call back in [address] Nayak called back at 08:23 and said that he will take care of the patient here. I was advised to give the patient gentamicin 160mg IV x 1 in addition to Cipro 400mg IV due to pt's penicillin allergy and the fact that infection developed while pt was on cephalexin, and prepare for OR. Consult/PCP: Dr. Nayak Re-Evaluation - Re-Evaluation First Eval Re-Evaluation Time: 08:41 Change: Unchanged Comment: I spoke with the patient concerning surgery in [facility] OR. The patient is agreeable and wants to follow through with the surgery. Course/Dx - Course Course Of Treatment: This patient is a 57 year old female BIBA to [facility] accompanied by with a chief complaint of abd pain since approx. 0100. Patient states the pain was very sudden onset. Bloodwork Obtained. Urinalysis Obtained. In the ED course the patient was given Hydromorphone, Ativan, Morphine , Zofran. The patient will be signed out to Dr. Honeycutt at end of shift, awaiting CT Abd/Pel. ON DR HONEYCUTT's SHIFT beginning 0700 12/11/17, results of CT returned, Dr. Nayak consulted, Cipro 400mg IV and Gentamicin 160mg IV x 1 given and additional hydromorphone for pain. Pt taken to the OR by Dr. Nayak. Dr. Yanez consulted for medical management. Both Dr. Nayak and Dr. Yanez are present in the ED. , [place], with pt throughout pt's ED course. - Diagnoses Provider Diagnoses: Abdominal pain, Hydronephrosis, left, Left ureteral calculus, UTI (urinary tract infection) - Provider Notifications Instructed by Provider To: Admit As Inpatient The documentation as recorded by the Eric coyle Natalie accurately reflects the service I personally performed and the decisions made by , Evangelina Honeycutt MD.
== END 2017-12-12 12:45 | disposition home or self-care (01) ==
LOC: ED 04:10 → AA 09:37 → SSU 13:15
PROVIDERS: ADMIT Hospitalist; ATTEND Nurse Practitioner
PROC: 0T9780Z Drainage of Left Ureter with Drainage Device, Via Natural or Artificial Opening Endoscopic (ICD-10-PCS; principal; 2017-12-11 10:25)
DX: R10.9 Unspecified abdominal pain (principal); N13.30 Unspecified hydronephrosis; N20.9 Urinary calculus, unspecified; N39.0 Urinary tract infection, site not specified; R10.84 Generalized abdominal pain; K58.0 Irritable bowel syndrome with diarrhea; J30.9 Allergic rhinitis, unspecified; F41.9 Anxiety disorder, unspecified; Z96.0 Presence of urogenital implants; N20.1 Calculus of ureter; Z88.0 Allergy status to penicillin; N20.0 Calculus of kidney
CPT/HCPCS: 36415; 74018; 74177; 74420; 80048; 80053; 81003; 81015; 82150; 83690; 85025; 86140; 87086; 96374; 96375; 99284; 99406; A9270-GY; C1876; G0378; J0744; J0780; J1100; J1170; J1580; J2060; J2250; J2270; J2405; J2704; J3010; J3360; Q9967